=== PATIENT | male | born 1970 | race Two or more races ===

== ENCOUNTER 2019-08-01 15:27 | Emergency (ER) | payer SELFPAY ==
[~2019-08-01] VITALS: Ht 175.3 cm; Wt 111.1 kg
[2019-08-01 16:17] LABS: Basophils # (auto) 0.1 uL; Basophils % (auto) 0.9 % (0.0-2.0); Eosinophils # (auto) 0 uL; Eosinophils % (auto) 0.7 % (0.0-7.0); Hematocrit 37.6 % (41.0-53.0); Hemoglobin 12.4 g/dL (13.5-17.5); Lymphocytes # (auto) 0.6 uL; Lymphocytes % (auto) 10.5 % (10.0-50.0); Mean Corpuscular Hemoglobin 27.9 pg (28.0-32.0); Mean Corpuscular Hgb Conc. 32.9 g/dL (32.0-36.0); Mean Corpuscular Volume 84.8 fL (80.0-100.0); Monocytes # (auto) 0.5 uL; Monocytes % (auto) 8.1 % (0.0-12.0); Neutrophils # (auto) 4.8 uL; Neutrophils % (auto) 79.8 % (37.0-80.0); Nucleated Red Blood Cells % 0.1 %; Platelet Count (auto) 210 10^3/uL (140-450); Red Blood Cells 4.44 10^6/uL (4.5-5.90); Red Cell Distribution Width 15.7 % (11.8-14.3); White Blood Cell 6.1 10^3/uL (4.4-10.8)
[2019-08-01 16:32] LABS: Calcium 8.3 mg/dL (8.5-10.1); Potassium 3.9 mmol/L (3.5-5.1)
[2019-08-01 16:37] LABS: Bilirubin, Total 0.7 mg/dL (0.2-1.0); Total Protein 6.9 g/dL (6.4-8.2)
[2019-08-01] MEDS ORDERED: FUROSEMIDE 40 MG/4 ML VIAL IV ONE (20:15)
[2019-08-01 20:42] VITALS: BP 135/92
== END 2019-08-01 20:43 | disposition left against medical advice (07) ==
LOC: ER 15:45
DX: R06.02 Shortness of breath (principal); Z53.21 Procedure and treatment not carried out due to patient leaving prior to being seen by health care provider
CPT/HCPCS: 36415; 71045; 80053; 82962; 83880; 84484; 85025

== ENCOUNTER 2020-06-10 19:37 | Inpatient (IN) | payer MEDICAID ==
[~2020-06-10] VITALS: Ht 175.3 cm; Wt 108.5 kg
[2020-06-10] MEDS ORDERED: FUROSEMIDE 20 MG/2 ML VIAL IV ONE (20:00)
[2020-06-10] MEDS ORDERED: InsuLIN REG 1unit/0.01ml Soln (100units/ml) IV ONE (20:45)
[2020-06-10 22:00] LABS: Urine WBC None Seen /hpf (0 - 3)
[2020-06-10 22:11] LABS: Basophils # (auto) 0.1 10 ^3/uL (0-0.2); Basophils % (auto) 0.9 % (0.0-2.0); Eosinophils # (auto) 0.1 10 ^3/uL (0-0.8); Eosinophils % (auto) 1.1 % (0.0-7.0); Hematocrit 41.5 % (41.0-53.0); Hemoglobin 13.6 g/dL (13.5-17.5); Lymphocytes # (auto) 1.3 10 ^3/uL (0.4-5.4); Lymphocytes % (auto) 18.9 % (10.0-50.0); Mean Corpuscular Hgb Conc. 32.8 g/dL (32.0-36.0); Mean Corpuscular Volume 85.4 fL (80.0-100.0); Monocytes # (auto) 0.5 10 ^3/uL (0-1.3); Monocytes % (auto) 7.5 % (0.0-12.0); Neutrophils # (auto) 4.8 10 ^3/uL (1.6-8.6); Neutrophils % (auto) 71.6 % (37.0-80.0); Nucleated Red Blood Cells % 0.1 %; Platelet Count (auto) 219 10^3/uL (140-450); Red Blood Cells 4.86 10^6/uL (4.5-5.90); Red Cell Distribution Width 14.9 % (11.8-14.3); White Blood Cell 6.6 10^3/uL (4.4-10.8)
[2020-06-10 22:19] LABS: Urine Bacteria NONE SEEN /hpf (None Seen); Urine Blood Negative /uL (Negative); Urine Specific Gravity 1.005 (1.001-1.035)
[2020-06-10 22:29] LABS: Albumin 3.2 g/dL (3.4-5.0); Calcium 9.2 mg/dL (8.5-10.1); Magnesium 1.9 mg/dL (1.6-2.6); Potassium 3.3 mmol/L (3.5-5.1)
[2020-06-10 22:37] LABS: Bilirubin, Total 1.2 mg/dL (0.2-1.0); Total Protein 6.8 g/dL (6.4-8.2)
[2020-06-10 22:50] LABS: INR 1.1 (0.9-1.15); Partial Thromboplastin Time 23.9 sec (23.0-31.2)
[2020-06-10] MEDS ORDERED: IOHEXOL 350 MG/ML 100ML IJ ONE (23:55)
[2020-06-11] VITALS (7 sets, daily range): BP systolic 126–162; BP diastolic 66–99
[2020-06-11] MEDS ORDERED: ENOXAPARIN SOD 100 MG/1 ML SYRINGE SC ONE
[2020-06-11] MEDS ORDERED: NITROGLYCERIN 0.4 MG SL TAB SL PRN (02:30)
[2020-06-11] MEDS ORDERED: ONDANSETRON HCL 4 MG/2 ML VIAL IV PRN (02:30)
[2020-06-11] MEDS ORDERED: DEXTROSE (50%) 50ML SYRG IV PRN (02:30)
[2020-06-11] MEDS ORDERED: MORPHINE SULF INJ 2 MG/ML SYRINGE 1ML IV PRN (02:30)
[2020-06-11] MEDS ORDERED: ACETAMINOPHEN 325 MG TAB PO PRN (02:30)
--- NOTE | 2020-06-11 03:50 | NUR ---
Telemetry admit from [facility] admitted to Telemetry unit after SBAR received. Patient oriented to Gerardo Arredondo, primary RN, unit, room, bed, and unit policies regarding patient care and visiting hours. Patient now on continuous telemetry monitoring, tele box # 63 and telemetry reading on arrival to unit is SR 88. Patient placed on bedside oxygen, weighed by bedscale and encouraged to call if they need something. All questions and concerns addressed, patient verbalized understanding.
--- NOTE | 2020-06-11 04:31 | NUR ---
PT UNABLE TO REMEMBER HIS LIST OF MEDS. DAUGHTER TO SEND HIM THE LIST IN THE MORNING.
[2020-06-11] MEDS ORDERED: FUROSEMIDE 20 MG/2 ML VIAL IV SCH (06:00)
[2020-06-11] MEDS: InsuLIN REG 1unit/0.01ml Soln (100units/ml) SC SCH ×4 (06:18→21:56)
[2020-06-11] MEDS: ACCU-CHEK COMFORT CURVE STRIP VI SCH ×4 (06:18→21:48)
--- NOTE | 2020-06-11 07:30 | NUR ---
Opening Shift Note Assuming care of patient at this time. Patient is awake and alert. Patient denies chest pain at this time. Patient shows no signs or symptoms of distress or shortness of breath. Bed is locked and lowered with side rails up x2. Instructed patient on the plan of care for today and to call for assistance as needed. Call light within reach. Will continue to round hourly and as needed.
[2020-06-11] MEDS ORDERED: POTASSIUM CHL 20 Meq TABLET PO ONE (07:45)
[2020-06-11] MEDS: CARVEDILOL 3.125 MG TAB PO SCH ×2 (10:21→21:56)
[2020-06-11 10:22] LABS: Cholesterol 150 mg/dL (< 200); HDL Cholesterol 22 mg/dL (40-59); LDL Cholesterol 115 mg/dL (< 100); Triglycerides 99 mg/dL (< 150)
[2020-06-11] MEDS: SACUBITRIL-VALSARTAN 24mg/26mg TAB PO SCH ×2 (10:22→21:56)
[2020-06-11] MEDS: FAMOTIDINE 20 MG TAB PO SCH ×2 (10:22→21:48)
[2020-06-11] MEDS: ENOXAPARIN SOD 40 MG/0.4 ML SYRINGE SC SCH (10:23)
[2020-06-11] MEDS: ASPirin 81 mg TAB PO SCH (10:24)
--- NOTE | 2020-06-11 10:48 | NUR ---
Fax to [facility] After speaking with distribution sales representative at [facility] regarding medical records. Medical records request form was sent. Clinical Documentation Spec states to put on form that patient is currently in hospital to expedite process of receiving records. Put a note on request and fax cover sheet that patient is currently in hospital. Awaiting records.
[2020-06-11 11:12] LABS: Alcohol, Urine < 3.0 mg/dL (0-10); Amphetamine Screen, Urine NEGATIVE (NEGATIVE); Barbiturate Scree,Urine NEGATIVE (NEGATIVE); Benzodiazephine Screen, Urine NEGATIVE (NEGATIVE); Cannabinoid Screen, Urine NEGATIVE (NEGATIVE); Cocaine Screen, Urine NEGATIVE (NEGATIVE); Opiate Scree,Urine NEGATIVE (NEGATIVE); Phencyclidine Screen, Urine NEGATIVE (NEGATIVE)
[2020-06-11] MEDS ORDERED: OPTISON 3ml Vial for INJ IV ONE ×2 (15:19→15:30)
--- NOTE | 2020-06-11 16:39 | NUR ---
Patient is a 49 [id number], who is unemployed and receiving SS 1030 monthly. Patient cognitive abilities are intact. Patient can perform all ADLs independently. Patient stated that he lives with his parents. Patient stated post discharge he plans to return home to his parents house. Patient stated that his parents is his support system. Patient was admitted to [facility] for SOB. Patient stated that he is requesting for home health assist with bathing and medication. Patient stated that he is receptive to quit smoking, using illicit drugs and drinking. Discharge Planning: SW provide resources for patient to hire caregiver for assistance. SW will provide resources for inpatient and outpatient programs for illicit drug use, and alcohol abuse including AA. SW will provide resources to quit smoking tobacco. Addendum: 06/11/20 at 1639 by CHAMP CROCKER Amended: Links added.
--- NOTE | 2020-06-11 16:57 | NUR ---
Critical Troponin Received report that while this RN was on lunch, patient's troponin level came back critical. Will notify
--- NOTE | 2020-06-11 17:00 | NUR ---
Call back from Dr. Palacios Call back from Dr. Palacios at this time. Made aware of critical troponin that has started to trend up. No new orders given at this time. Still awaiting records from [facility].
[2020-06-11] MEDS: FUROSEMIDE 40 MG/4 ML VIAL IV SCH (17:20)
--- NOTE | 2020-06-11 18:58 | NUR ---
Closing Shift Note Patient resting in bed. No distress noted. Will endorse care to the date night sitter RN.
--- NOTE | 2020-06-11 20:30 | NUR ---
pt is requesting C-pap, hospitalist paged
--- NOTE | 2020-06-11 20:50 | NUR ---
RT at bedside placing C-pap per order obtained.
[2020-06-11] MEDS: ATORVASTATIN 20 MG TAB PO SCH (21:48)
[2020-06-11] MEDS: TEMAZEPAM 15 MG CAP PO PRN (21:59)
--- NOTE | 2020-06-12 00:22 | NUR ---
critical value troponin 0.601, trending down.
--- NOTE | 2020-06-12 01:32 | NUR ---
pt called this newswriter to his room to inform me that he had taken his C-pap off, because he was uncomfortable, O2 sats 94% on room air no s/s of distress, will continue to monitor.
--- NOTE | 2020-06-12 02:13 | NUR ---
AT BEDSIDE FOR CPAP CHECK. PT FOUND OFF CPAP. SAT 68% PT PLACED ON 4 L NC. POX 98%
[2020-06-12 05:00] VITALS: BP 116/78
--- NOTE | 2020-06-12 06:07 | NUR ---
RECEIVED PT FROM [facility] RT. PT IS OFF CPAP, SLEEPING IN BED. HR 78, RR 22, SPO2 83% ON ROOM AIR. PLACED PT ON 4LPM NC, SPO2 MAINTAINING AT 94%. RN AT BEDSIDE. NO S/S OF DISTRESS.
[2020-06-12] MEDS: ACCU-CHEK COMFORT CURVE STRIP VI SCH ×4 (06:14→21:56)
[2020-06-12] MEDS: FUROSEMIDE 40 MG/4 ML VIAL IV SCH ×2 (06:16→17:32)
[2020-06-12] MEDS: InsuLIN REG 1unit/0.01ml Soln (100units/ml) SC SCH ×4 (06:17→21:56)
--- NOTE | 2020-06-12 07:30 | NUR ---
Closing Shift Note Assuming care of patient at this time. Patient is resting in bed. Bed is locked and lowered with side rails up x2. Patient shows no signs or symptoms of distress or shortness of breath. Instructed patient on the plan of care for today and to call for assistance as needed. Call light within reach. Will continue to round hourly and as needed.
--- NOTE | 2020-06-12 08:14 | NUR ---
Call to BRISA Garcia Call to [facility] regarding hospital records and fax that was sent yesterday by this RN. No answer at this time. Will attempt to call later.
[2020-06-12 08:22] LABS: Basophils # (auto) 0.1 10 ^3/uL (0-0.2); Basophils % (auto) 1.5 % (0.0-2.0); Eosinophils # (auto) 0.1 10 ^3/uL (0-0.8); Eosinophils % (auto) 1.5 % (0.0-7.0); Hemoglobin 14.3 g/dL (13.5-17.5); Lymphocytes # (auto) 1.1 10 ^3/uL (0.4-5.4); Lymphocytes % (auto) 18.2 % (10.0-50.0); Mean Corpuscular Hemoglobin 27.5 pg (28.0-32.0); Mean Corpuscular Hgb Conc. 32.4 g/dL (32.0-36.0); Mean Corpuscular Volume 84.9 fL (80.0-100.0); Monocytes # (auto) 0.5 10 ^3/uL (0-1.3); Monocytes % (auto) 7.8 % (0.0-12.0); Neutrophils # (auto) 4.3 10 ^3/uL (1.6-8.6); Nucleated Red Blood Cells % 0.1 %; Platelet Count (auto) 211 10^3/uL (140-450); Red Blood Cells 5.18 10^6/uL (4.5-5.90); Red Cell Distribution Width 14.5 % (11.8-14.3); White Blood Cell 6.1 10^3/uL (4.4-10.8)
--- NOTE | 2020-06-12 08:23 | NUR ---
Call to BRISA Garcia Spoke to care support representative regarding medical records. Fraternity Adviser states that records will be faxed today.
[2020-06-12 08:39] VITALS: BP 104/74
[2020-06-12 08:43] LABS: Albumin 2.9 g/dL (3.4-5.0); Calcium 8.4 mg/dL (8.5-10.1); Potassium 3.6 mmol/L (3.5-5.1)
[2020-06-12 08:47] LABS: BUN/Creatinine Ratio 23.2; Bilirubin, Total 1.7 mg/dL (0.2-1.0); Total Protein 6.3 g/dL (6.4-8.2)
[2020-06-12] MEDS: ASPirin 81 mg TAB PO SCH (10:06)
[2020-06-12] MEDS: FAMOTIDINE 20 MG TAB PO SCH ×2 (10:07→21:57)
[2020-06-12] MEDS: CARVEDILOL 3.125 MG TAB PO SCH ×2 (10:07→21:56)
[2020-06-12] MEDS: SACUBITRIL-VALSARTAN 24mg/26mg TAB PO SCH ×2 (10:07→21:57)
[2020-06-12] MEDS: ENOXAPARIN SOD 40 MG/0.4 ML SYRINGE SC SCH (10:09)
[2020-06-12] MEDS ORDERED: DAPAGLIFLOZIN 5 MG TAB PO ONE (11:30)
[2020-06-12 12:56] VITALS: BP 113/75
[2020-06-12 17:16] VITALS: BP 125/89
--- NOTE | 2020-06-12 18:00 | NUR ---
Medical Records Medical records faxed over and placed in chart.
--- NOTE | 2020-06-12 19:35 | NUR ---
Opening Shift Note Assumed care of patient, awake and alert. No S/S of distress/SOB or pain. Instructed on POC and to call for assist PRN. Bed in lowest locked position, call light within reach. Will continue to monitor for changes Q1hr and PRN.
--- NOTE | 2020-06-12 19:36 | NUR ---
Closing Shift Note Patient resting in bed. No distress noted. Will endorse care to the salesperson terrazzo tiles RN.
[2020-06-12] MEDS: ATORVASTATIN 20 MG TAB PO SCH (21:57)
[2020-06-12] MEDS: TEMAZEPAM 15 MG CAP PO PRN (21:57)
[2020-06-12 22:00] VITALS: BP 134/82
[2020-06-13 05:00] VITALS: BP 127/97
[2020-06-13] MEDS: FUROSEMIDE 40 MG/4 ML VIAL IV SCH ×2 (05:50→17:31)
[2020-06-13 05:58] LABS: Basophils # (auto) 0.1 10 ^3/uL (0-0.2); Basophils % (auto) 1.1 % (0.0-2.0); Eosinophils # (auto) 0.1 10 ^3/uL (0-0.8); Eosinophils % (auto) 1.3 % (0.0-7.0); Hematocrit 41.6 % (41.0-53.0); Hemoglobin 13.8 g/dL (13.5-17.5); Lymphocytes # (auto) 1.2 10 ^3/uL (0.4-5.4); Lymphocytes % (auto) 19.8 % (10.0-50.0); Mean Corpuscular Hgb Conc. 33.1 g/dL (32.0-36.0); Mean Corpuscular Volume 84.4 fL (80.0-100.0); Monocytes # (auto) 0.4 10 ^3/uL (0-1.3); Monocytes % (auto) 7.2 % (0.0-12.0); Neutrophils # (auto) 4.3 10 ^3/uL (1.6-8.6); Neutrophils % (auto) 70.6 % (37.0-80.0); Nucleated Red Blood Cells % 0.3 %; Platelet Count (auto) 206 10^3/uL (140-450); Red Blood Cells 4.93 10^6/uL (4.5-5.90); Red Cell Distribution Width 14.5 % (11.8-14.3); White Blood Cell 6.1 10^3/uL (4.4-10.8)
[2020-06-13 06:17] LABS: Potassium 3.7 mmol/L (3.5-5.1)
[2020-06-13] MEDS: ACCU-CHEK COMFORT CURVE STRIP VI SCH ×4 (06:17→22:01)
[2020-06-13] MEDS: InsuLIN REG 1unit/0.01ml Soln (100units/ml) SC SCH ×4 (06:17→22:01)
[2020-06-13 06:28] LABS: BUN/Creatinine Ratio 28.3; Calcium 8.5 mg/dL (8.5-10.1)
--- NOTE | 2020-06-13 07:25 | NUR ---
Opening Shift Note Assumed care of patient, awake and alert. No S/S of distress/SOB or pain. Instructed on POC and to call for assist PRN, will continue to monitor for changes Q1hr and PRN. Bed locked in lowest position, HOB elevated at least 30 degrees, call light within reach and side rails up x 2.
[2020-06-13 09:00] VITALS: BP 133/70
[2020-06-13] MEDS: CARVEDILOL 3.125 MG TAB PO SCH ×2 (09:54→22:01)
[2020-06-13] MEDS: ASPirin 81 mg TAB PO SCH (09:54)
[2020-06-13] MEDS: SACUBITRIL-VALSARTAN 24mg/26mg TAB PO SCH ×2 (09:55→22:01)
[2020-06-13] MEDS: DAPAGLIFLOZIN 5 MG TAB PO SCH (09:55)
[2020-06-13] MEDS: ENOXAPARIN SOD 40 MG/0.4 ML SYRINGE SC SCH (09:55)
[2020-06-13] MEDS: FAMOTIDINE 20 MG TAB PO SCH ×2 (09:55→22:02)
[2020-06-13 13:00] VITALS: BP 140/84
--- NOTE | 2020-06-13 14:00 | NUR ---
MD ROUNDS DR ALBERT AT BEDSIDE NO NEW ORDERS AT THIS TIME
[2020-06-13 16:42] VITALS: BP 145/85
[2020-06-13 18:00] VITALS: BP 126/76
--- NOTE | 2020-06-13 19:35 | NUR ---
Opening Shift Note Assumed care of patient, awake and alert x4. No S/S of distress/SOB or pain. Call light is within reach, side rails up x2, bed is in the lowest position. Instructed on POC and to call for assist PRN, will continue to monitor for changes Q1hr and PRN.
--- NOTE | 2020-06-13 19:45 | NUR ---
CLOSING NOTE ENDORSED CARE TO NOC SHIFT RN
[2020-06-13 22:00] VITALS: BP 126/76
[2020-06-13] MEDS: TEMAZEPAM 15 MG CAP PO PRN (22:02)
[2020-06-13] MEDS: ATORVASTATIN 20 MG TAB PO SCH (22:02)
--- NOTE | 2020-06-13 22:40 | NUR ---
IV insertion IV access obtained, via clean sterile technique by inserting 20 gauge catheter at RAC after 2 attempt(s). IV secured properly. No trauma to site. Patient tolerated well. IV removal from LAC IV DC'd with clean sterile technique, catheter fully intact. Pressure dressing applied to site. Patient tolerated well.
--- NOTE | 2020-06-14 00:03 | NUR ---
Paged hospitalist. Patient is requesting cough syrup.
--- NOTE | 2020-06-14 00:08 | NUR ---
Hospitalist Veronique called back New order received for Robitussin q4h prn for cough. See eMAR and order history.
[2020-06-14] MEDS ORDERED: guaiFENesin-DM 100/10mg/5ml SYR PO PRN (00:15)
--- NOTE | 2020-06-14 02:24 | NUR ---
Paged RT, patient took off his cpap.
[2020-06-14 05:48] VITALS: BP 129/70
--- NOTE | 2020-06-14 06:20 | NUR ---
RECEIVED PT FROM [facility]. PT IS IN SEMI FOWLERS POSITION. PT SLEEPING COMFORTABLE (PT WOKE UP DURING ASSESSMENT). PT IS OFF CPAP. CONTINUOUS PULSE OXYMETER MONITOR AT BEDSIDE. PT ON 2 L/MIN VIA NC. 96% O2 SATS , HR 84 BPM, RR18 BPM, BS ARE CLEAR TO AUSCULTATION. RESPIRATION IS EVEN AND ON LABORED. WILL CONTINUE TO MONITOR PT.
[2020-06-14] MEDS: FUROSEMIDE 40 MG/4 ML VIAL IV SCH ×2 (06:29→17:26)
[2020-06-14] MEDS: ACCU-CHEK COMFORT CURVE STRIP VI SCH ×3 (06:29→17:31)
[2020-06-14] MEDS: InsuLIN REG 1unit/0.01ml Soln (100units/ml) SC SCH ×3 (06:29→17:32)
--- NOTE | 2020-06-14 07:10 | NUR ---
Opening Shift Note Assumed care of patient resting in bed with eyes closed. Respirations even and unlabored at this time. Will continue to monitor for changes Q1hr and PRN. Bed locked in lowest position, HOB elevated at least 30 degrees, call light within reach and side rails up x 2.
[2020-06-14 08:53] VITALS: BP 128/74
[2020-06-14] MEDS: DAPAGLIFLOZIN 5 MG TAB PO SCH (10:15)
[2020-06-14] MEDS: SACUBITRIL-VALSARTAN 24mg/26mg TAB PO SCH (10:15)
[2020-06-14] MEDS: FAMOTIDINE 20 MG TAB PO SCH (10:15)
[2020-06-14] MEDS: ASPirin 81 mg TAB PO SCH (10:15)
[2020-06-14] MEDS: ENOXAPARIN SOD 40 MG/0.4 ML SYRINGE SC SCH (10:15)
[2020-06-14] MEDS: CARVEDILOL 3.125 MG TAB PO SCH (10:16)
--- NOTE | 2020-06-14 12:31 | NUR ---
Nutrition Assessment Note Please see attached link for complete assessment Est energy needs ABW 90 [id number] kcal (20-23kcal/kg ABW), Est protein needs: 90-99 g (1.0-1.1g/kg ABW ) Will reassess prn. Addendum: 06/14/20 at [address] Amended: Links added.
[2020-06-14 13:00] VITALS: BP_SYST 128; BP_SYST 133; BP_DIAS 74; BP_DIAS 81
[2020-06-14 16:51] VITALS: BP 120/77
[2020-06-14 17:49] VITALS: BP 120/77
--- NOTE | 2020-06-14 18:50 | NUR ---
Discharge instructions given as ordered. Encourage to follow up with PMD as instructed. All questions and concerns addressed. Patient verbalized understanding. IV removed with catheter intact, pressure dressing applied. Telemetry unit returned to ICU. Patient taken to vehicle via wheelchair with all personal belongings, accompanied by staff and family member. Patient refusedto sign patient signature page. No distress noted at time of departure.
== END 2020-06-14 18:50 | disposition home or self-care (01) | DRG 194 ==
LOC: EDBD 19:37 → ER 19:41 → TELE 19:42 → TELE-WESTW 06-11 03:45
PROVIDERS: ADMIT Nurse Practitioner; ATTEND Internal Medicine Pulmonary Disease
PROC: 5A09357 Assistance with Respiratory Ventilation, Less than 24 Consecutive Hours, Continuous Positive Airway Pressure (ICD-10-PCS; principal; 2020-06-11)
PROC: 5A09357 Assistance with Respiratory Ventilation, Less than 24 Consecutive Hours, Continuous Positive Airway Pressure (ICD-10-PCS; 2020-06-12)
PROC: 5A09357 Assistance with Respiratory Ventilation, Less than 24 Consecutive Hours, Continuous Positive Airway Pressure (ICD-10-PCS; 2020-06-14)
DX: I11.0 Hypertensive heart disease with heart failure (principal); J96.01 Acute respiratory failure with hypoxia; I21.A1 Myocardial infarction type 2; I50.23 Acute on chronic systolic (congestive) heart failure; E11.65 Type 2 diabetes mellitus with hyperglycemia; E44.0 Moderate protein-calorie malnutrition; E78.5 Hyperlipidemia, unspecified; F10.10 Alcohol abuse, uncomplicated; F15.10 Other stimulant abuse, uncomplicated; E66.01 Morbid (severe) obesity due to excess calories; I42.9 Cardiomyopathy, unspecified; I48.92 Unspecified atrial flutter; J44.9 Chronic obstructive pulmonary disease, unspecified; Z79.4 Long term (current) use of insulin; Z68.35 Body mass index [BMI] 35.0-35.9, adult; Z79.899 Other long term (current) drug therapy; Z86.73 Personal history of transient ischemic attack (TIA), and cerebral infarction without residual deficits; Z91.14 Patient's other noncompliance with medication regimen
CPT/HCPCS: 36415; 71045; 71275; 80048; 80053; 80061; 80307; 81001; 82962; 83036; 83735; 83880; 84484; 85025; 85379; 85610; 85730; 93005; 93306; 94660; 96372; 96374; 96375; G0378; J1815; Q9956

== ENCOUNTER 2020-07-01 19:45 | Inpatient (IN) | payer MEDICAID ==
[~2020-07-01] VITALS: Ht 175.3 cm; Wt 111.1 kg
[2020-07-01 21:15] LABS: Basophils # (auto) 0.1 10 ^3/uL (0-0.2); Basophils % (auto) 0.9 % (0.0-2.0); Eosinophils # (auto) 0.1 10 ^3/uL (0-0.8); Eosinophils % (auto) 1.1 % (0.0-7.0); Hematocrit 42.5 % (41.0-53.0); Hemoglobin 13.9 g/dL (13.5-17.5); Lymphocytes # (auto) 1.2 10 ^3/uL (0.4-5.4); Lymphocytes % (auto) 16.1 % (10.0-50.0); Mean Corpuscular Hemoglobin 27.7 pg (28.0-32.0); Mean Corpuscular Hgb Conc. 32.6 g/dL (32.0-36.0); Mean Corpuscular Volume 85.1 fL (80.0-100.0); Monocytes # (auto) 0.5 10 ^3/uL (0-1.3); Monocytes % (auto) 6.3 % (0.0-12.0); Neutrophils # (auto) 5.4 10 ^3/uL (1.6-8.6); Neutrophils % (auto) 75.6 % (37.0-80.0); Nucleated Red Blood Cells % 0.2 %; Platelet Count (auto) 192 10^3/uL (140-450); Red Cell Distribution Width 15.4 % (11.8-14.3); White Blood Cell 7.1 10^3/uL (4.4-10.8)
[2020-07-01 21:37] LABS: Albumin 2.8 g/dL (3.4-5.0); Calcium 8.3 mg/dL (8.5-10.1); Magnesium 1.9 mg/dL (1.6-2.6); Potassium 3.3 mmol/L (3.5-5.1)
[2020-07-01 21:38] LABS: INR 1.23 (0.9-1.15); Partial Thromboplastin Time 25.8 sec (23.0-31.2)
[2020-07-01 21:42] LABS: BUN/Creatinine Ratio 20.5; Bilirubin, Total 1.6 mg/dL (0.2-1.0); Total Protein 6.6 g/dL (6.4-8.2)
[2020-07-01 21:57] LABS: Urine Bacteria NONE SEEN /hpf (None Seen); Urine Blood 1+ /uL (Negative); Urine Mucus FEW (None Seen); Urine Specific Gravity 1.029 (1.001-1.035); Urine WBC 6 /hpf (0 - 3)
[2020-07-01 22:07] LABS: Lactic Acid w/Reflex 2.2 mmol/L (0.4-2.0)
[2020-07-02] MEDS ORDERED: FUROSEMIDE 20 MG/2 ML VIAL IV ONE
[2020-07-02] MEDS ORDERED: ACETAMINOPHEN 325 MG TAB PO PRN (00:30)
[2020-07-02] MEDS ORDERED: ONDANSETRON HCL 4 MG/2 ML VIAL IV PRN (00:30)
[2020-07-02] MEDS ORDERED: MORPHINE SULF INJ 2 MG/ML SYRINGE 1ML IV PRN (00:30)
[2020-07-02] MEDS ORDERED: DEXTROSE (50%) 50ML SYRG IV PRN (00:30)
[2020-07-02] MEDS ORDERED: NITROGLYCERIN 0.4 MG SL TAB SL PRN (00:30)
[2020-07-02] MEDS ORDERED: TEMAZEPAM 15 MG CAP PO PRN (00:30)
[2020-07-02] MEDS ORDERED: SITA100T7 PO (06:22)
[2020-07-02] MEDS ORDERED: AMIO200T33 PO (06:22)
[2020-07-02] MEDS ORDERED: FURO20TA3 PO (06:22)
[2020-07-02] MEDS ORDERED: LISI-648 PO (06:22)
[2020-07-02] MEDS ORDERED: METF-370 PO (06:22)
[2020-07-02] MEDS ORDERED: INSLANTI SC ×2 (06:22→15:21)
[2020-07-02] MEDS ORDERED: ASPI81CH59 PO (06:22)
[2020-07-02] MEDS: ACCU-CHEK COMFORT CURVE STRIP VI SCH ×4 (06:49→22:26)
[2020-07-02] MEDS: FUROSEMIDE 40 MG/4 ML VIAL IV SCH ×2 (06:49→17:59)
[2020-07-02] MEDS: InsuLIN REG 1unit/0.01ml Soln (100units/ml) SC SCH ×4 (06:50→22:27)
[2020-07-02 08:00] VITALS: BP 130/91
[2020-07-02 09:00] VITALS: BP 130/81
[2020-07-02] MEDS ORDERED: ASPirin 81 mg TAB PO SCH (10:00)
[2020-07-02] MEDS ORDERED: CARVEDILOL 3.125 MG TAB PO SCH (10:00)
[2020-07-02] MEDS: SACUBITRIL-VALSARTAN 24mg/26mg TAB PO SCH ×2 (10:20→22:03)
[2020-07-02] MEDS: FAMOTIDINE 20 MG TAB PO SCH ×2 (10:20→22:04)
[2020-07-02] MEDS: ENOXAPARIN SOD 40 MG/0.4 ML SYRINGE SC SCH (10:20)
[2020-07-02] MEDS: HYDROcodone-ACET 5/325MG TAB PO PRN ×3 (10:23→22:26)
[2020-07-02] MEDS ORDERED: POTASSIUM CHL 20 Meq TABLET PO ONE ×2 (12:45)
[2020-07-02] MEDS ORDERED: metOLazone 5 MG TAB PO ONE (12:45)
[2020-07-02 13:00] VITALS: BP 126/96
[2020-07-02] MEDS ORDERED: METF-371 PO (15:21)
[2020-07-02] MEDS ORDERED: SACU1TAB PO (15:21)
[2020-07-02] MEDS ORDERED: CAR3125T PO (15:21)
[2020-07-02] MEDS ORDERED: FURO40TA4 PO (15:21)
[2020-07-02] MEDS ORDERED: POTA10TA32 PO (15:21)
[2020-07-02 17:00] VITALS: BP 116/88
[2020-07-02 20:00] VITALS: BP 132/80
[2020-07-02 21:53] VITALS: BP 132/80
[2020-07-02] MEDS ORDERED: ATORVASTATIN 20 MG TAB PO SCH (22:00)
[2020-07-02] MEDS: MUPIROCIN 2% OINT 15gm or 22gm EACHNOSTRI SCH (22:03)
[2020-07-02] MEDS: MAGNESIUM OXIDE 400 MG TAB PO SCH (22:03)
[2020-07-02] MEDS: CARVEDILOL 3.125 MG TAB PO SCH (22:05)
[2020-07-02 22:55] LABS: Alcohol, Urine < 3.0 mg/dL (0-10); Amphetamine Screen, Urine NEGATIVE (NEGATIVE); Barbiturate Scree,Urine NEGATIVE (NEGATIVE); Benzodiazephine Screen, Urine NEGATIVE (NEGATIVE); Cannabinoid Screen, Urine NEGATIVE (NEGATIVE); Cocaine Screen, Urine NEGATIVE (NEGATIVE); Opiate Scree,Urine NEGATIVE (NEGATIVE); Phencyclidine Screen, Urine NEGATIVE (NEGATIVE)
[2020-07-03 05:22] VITALS: BP 98/74
[2020-07-03 06:20] LABS: Basophils # (auto) 0.1 10 ^3/uL (0-0.2); Basophils % (auto) 2.1 % (0.0-2.0); Eosinophils # (auto) 0.1 10 ^3/uL (0-0.8); Hematocrit 42.7 % (41.0-53.0); Hemoglobin 13.9 g/dL (13.5-17.5); Lymphocytes # (auto) 1.3 10 ^3/uL (0.4-5.4); Lymphocytes % (auto) 23.8 % (10.0-50.0); Mean Corpuscular Hemoglobin 27.4 pg (28.0-32.0); Mean Corpuscular Hgb Conc. 32.5 g/dL (32.0-36.0); Mean Corpuscular Volume 84.3 fL (80.0-100.0); Monocytes # (auto) 0.4 10 ^3/uL (0-1.3); Neutrophils # (auto) 3.5 10 ^3/uL (1.6-8.6); Neutrophils % (auto) 64.1 % (37.0-80.0); Nucleated Red Blood Cells % 0.2 %; Platelet Count (auto) 187 10^3/uL (140-450); Red Blood Cells 5.06 10^6/uL (4.5-5.90); Red Cell Distribution Width 15.8 % (11.8-14.3); White Blood Cell 5.4 10^3/uL (4.4-10.8)
[2020-07-03] MEDS: FUROSEMIDE 40 MG/4 ML VIAL IV SCH ×2 (06:22→17:52)
[2020-07-03] MEDS: ACCU-CHEK COMFORT CURVE STRIP VI SCH ×3 (06:22→17:51)
[2020-07-03] MEDS: InsuLIN REG 1unit/0.01ml Soln (100units/ml) SC SCH ×3 (06:23→17:09)
[2020-07-03 06:41] LABS: Potassium 3.3 mmol/L (3.5-5.1)
[2020-07-03 06:45] LABS: BUN/Creatinine Ratio 25.3; Calcium 8.4 mg/dL (8.5-10.1)
[2020-07-03 09:00] VITALS: BP 114/78
[2020-07-03] MEDS ORDERED: POTASSIUM CHL 20 Meq TABLET PO SCH (10:00)
[2020-07-03] MEDS ORDERED: ASPirin 81 mg TAB PO SCH (10:00)
[2020-07-03] MEDS: SACUBITRIL-VALSARTAN 24mg/26mg TAB PO SCH (10:02)
[2020-07-03] MEDS: CARVEDILOL 3.125 MG TAB PO SCH (10:02)
[2020-07-03] MEDS: FAMOTIDINE 20 MG TAB PO SCH (10:02)
[2020-07-03] MEDS: MAGNESIUM OXIDE 400 MG TAB PO SCH (10:02)
[2020-07-03] MEDS: ENOXAPARIN SOD 40 MG/0.4 ML SYRINGE SC SCH (10:04)
[2020-07-03] MEDS ORDERED: POTA-220 PO (10:16)
[2020-07-03] MEDS ORDERED: CARV6.25 PO (10:16)
[2020-07-03] MEDS ORDERED: METO2.5T11 PO (10:16)
[2020-07-03] MEDS ORDERED: MAGN400T21 PO (10:16)
[2020-07-03] MEDS ORDERED: SACU1TAB PO (10:16)
[2020-07-03] MEDS: MUPIROCIN 2% OINT 15gm or 22gm EACHNOSTRI SCH (11:04)
[2020-07-03 13:00] VITALS: BP 103/70
[2020-07-03 13:13] VITALS: BP 103/70
[2020-07-03 17:00] VITALS: BP 121/85
== END 2020-07-03 18:06 | disposition home or self-care (01) | DRG 194 ==
LOC: ER 19:46 → TELE 07-02 00:25 → TELE-WESTW 07-02 05:55
PROVIDERS: ADMIT Nurse Practitioner; ATTEND Internal Medicine
DX: I11.0 Hypertensive heart disease with heart failure (principal); J96.00 Acute respiratory failure, unspecified whether with hypoxia or hypercapnia; I21.A1 Myocardial infarction type 2; I50.43 Acute on chronic combined systolic (congestive) and diastolic (congestive) heart failure; I50.82 Biventricular heart failure; E87.6 Hypokalemia; E11.65 Type 2 diabetes mellitus with hyperglycemia; E66.9 Obesity, unspecified; Z68.36 Body mass index [BMI] 36.0-36.9, adult; E78.5 Hyperlipidemia, unspecified; B95.62 Methicillin resistant Staphylococcus aureus infection as the cause of diseases classified elsewhere; F10.10 Alcohol abuse, uncomplicated; Z20.828 Contact with and (suspected) exposure to other viral communicable diseases; F15.10 Other stimulant abuse, uncomplicated; I42.9 Cardiomyopathy, unspecified; R94.5 Abnormal results of liver function studies; I48.0 Paroxysmal atrial fibrillation; J44.9 Chronic obstructive pulmonary disease, unspecified; K80.20 Calculus of gallbladder without cholecystitis without obstruction; Z79.4 Long term (current) use of insulin; Z86.73 Personal history of transient ischemic attack (TIA), and cerebral infarction without residual deficits
CPT/HCPCS: 36415; 36600; 71045; 71275; 73700; 80048; 80053; 80307; 81001; 82805; 82962; 83605; 83735; 83880; 84484; 85025; 85379; 85610; 85730; 87040; 87081; 87426; 93971; 96372; 96374; 96375; G0378; J1815

== ENCOUNTER 2020-08-16 15:41 | Emergency (ER) | payer MEDICAID ==
[~2020-08-16] VITALS: Ht 172.7 cm; Wt 99.8 kg
[~2020-08-16 15:41] MED LIST: ASPI81CH59 PO; CARV6.25 PO; FURO40TA4 PO; INSLANTI SC; MAGN241.4 PO; METF-371 PO; METO2.5T PO; POTA-220 PO; SACU1TAB PO; SITA100T7 PO
[2020-08-16] MEDS ORDERED: ADENOSINE 6 MG/2 ML INJ IV ONE ×3 (15:56→16:15)
[2020-08-16] MEDS ORDERED: LORazepam 2MG/ML-1ML VIAL IV ONE (16:00)
[2020-08-16] MEDS ORDERED: SODIUM CHLORIDE 0.9% 1,000 ML IV ONE (16:00)
[2020-08-16] MEDS ORDERED: METOPROLOL TARTRATE 1MG/1ML-5ML VIAL IV ONE ×6 (16:01→16:30)
[2020-08-16] MEDS ORDERED: dilTIAZem 25 MG/5 ML VIAL IV ONE ×2 (16:26→16:30)
[2020-08-16] MEDS ORDERED: dilTIAZem 125mg/125ml BAG KIT 0 ML IV ONE (16:41)
[2020-08-16 17:26] LABS: Basophils # (auto) 0.1 10 ^3/uL (0-0.2); Basophils % (auto) 0.6 % (0.0-2.0); Eosinophils # (auto) 0 10 ^3/uL (0-0.8); Eosinophils % (auto) 0.3 % (0.0-7.0); Hematocrit 47.5 % (41.0-53.0); Hemoglobin 15.9 g/dL (13.5-17.5); Lymphocytes # (auto) 0.8 10 ^3/uL (0.4-5.4); Lymphocytes % (auto) 6.5 % (10.0-50.0); Mean Corpuscular Hemoglobin 28.1 pg (28.0-32.0); Mean Corpuscular Hgb Conc. 33.5 g/dL (32.0-36.0); Mean Corpuscular Volume 83.9 fL (80.0-100.0); Monocytes # (auto) 1.1 10 ^3/uL (0-1.3); Monocytes % (auto) 8.6 % (0.0-12.0); Neutrophils # (auto) 10.7 10 ^3/uL (1.6-8.6); Red Blood Cells 5.66 10^6/uL (4.5-5.90); Red Cell Distribution Width 17.1 % (11.8-14.3); White Blood Cell 12.7 10^3/uL (4.4-10.8)
[2020-08-16 17:43] LABS: INR 0.98 (0.9-1.15)
[2020-08-16 17:44] LABS: Albumin 3.3 g/dL (3.4-5.0); Calcium 8.6 mg/dL (8.5-10.1); Magnesium 1.9 mg/dL (1.6-2.6); Potassium 4.5 mmol/L (3.5-5.1)
[2020-08-16 17:51] LABS: Bilirubin, Total 0.8 mg/dL (0.2-1.0); Total Protein 7.6 g/dL (6.4-8.2)
[2020-08-16 18:15] LABS: BUN/Creatinine Ratio 19.6
[2020-08-16 21:00] VITALS: BP 115/76
[2020-08-16] MEDS ORDERED: ONDANSETRON HCL 4 MG/2 ML VIAL IV ONE (21:15)
[2020-08-16] MEDS ORDERED: ONDANSETRON ODT 4 MG TAB PO ONE (21:15)
== END 2020-08-17 00:47 | disposition home or self-care (01) ==
LOC: EDBD 15:41 → ER 15:41
DX: I47.1 Supraventricular tachycardia (principal)
CPT/HCPCS: 36415; 71045; 80053; 82962; 83735; 83880; 84484; 85025; 85610; 92960; 93005; 96361; 96374; 96375; 99291; J0153; J2060; J2405